=== PATIENT | female | born 1935 | race Caucasian/White ===

== ENCOUNTER → 2017-03-05 | Outpatient (CLI) | payer MEDICARE, BC | END | disposition home or self-care (01) | LOC: WOUND 10:16 | PROVIDERS: ATTEND Physician Assistant | DX: C44.729 Squamous cell carcinoma of skin of left lower limb, including hip (principal); I89.0 Lymphedema, not elsewhere classified; I10 Essential (primary) hypertension; E03.9 Hypothyroidism, unspecified; K21.9 Gastro-esophageal reflux disease without esophagitis; M19.90 Unspecified osteoarthritis, unspecified site; M06.9 Rheumatoid arthritis, unspecified; Z86.711 Personal history of pulmonary embolism; Z90.710 Acquired absence of both cervix and uterus | CPT/HCPCS: 11100; G0463; WOU0463 ==

== ENCOUNTER → 2017-03-19 | Outpatient (CLI) | payer MEDICARE, BC | END | disposition home or self-care (01) | LOC: WOUND 10:00 | PROVIDERS: ATTEND Physician Assistant | DX: I89.0 Lymphedema, not elsewhere classified (principal); L84 Corns and callosities; Z90.710 Acquired absence of both cervix and uterus; I10 Essential (primary) hypertension; K21.9 Gastro-esophageal reflux disease without esophagitis; E03.9 Hypothyroidism, unspecified; M06.9 Rheumatoid arthritis, unspecified | CPT/HCPCS: G0463; WOU0463 ==

== ENCOUNTER → 2017-03-27 | Outpatient (CLI) | payer MEDICARE, BC | END | disposition home or self-care (01) | LOC: CVU 13:45 | PROVIDERS: ATTEND Physician Assistant | DX: I70.203 Unspecified atherosclerosis of native arteries of extremities, bilateral legs (principal); I87.2 Venous insufficiency (chronic) (peripheral); S91.002D Unspecified open wound, left ankle, subsequent encounter; X58.XXXD Exposure to other specified factors, subsequent encounter | CPT/HCPCS: 93922; 93925; 93970 ==

== ENCOUNTER → 2017-04-02 | Outpatient (CLI) | payer MEDICARE, BC | END | disposition home or self-care (01) | LOC: WOUND 10:38 | PROVIDERS: ATTEND Family Medicine | DX: S81.802D Unspecified open wound, left lower leg, subsequent encounter (principal); I87.2 Venous insufficiency (chronic) (peripheral); L84 Corns and callosities; I89.0 Lymphedema, not elsewhere classified; I10 Essential (primary) hypertension; K21.9 Gastro-esophageal reflux disease without esophagitis; E03.9 Hypothyroidism, unspecified; M06.9 Rheumatoid arthritis, unspecified; Z86.711 Personal history of pulmonary embolism; Z90.710 Acquired absence of both cervix and uterus; X58.XXXD Exposure to other specified factors, subsequent encounter | CPT/HCPCS: G0463; WOU0463 ==

== ENCOUNTER 2017-04-27 12:30 | Inpatient (IN) | payer MEDICARE, BC ==
[~2017-04-27] VITALS: Ht 162.6 cm; Wt 73.1 kg
[2017-04-27] MEDS ORDERED: OMEP-110 PO (13:07)
[2017-04-27] MEDS ORDERED: AMLO5TAB2 PO (13:07)
[2017-04-27] MEDS ORDERED: FOLI-17 PO (13:07)
[2017-04-27] MEDS ORDERED: LISI40TA PO (13:07)
[2017-04-27] MEDS ORDERED: LEVO75TA PO (13:07)
[2017-04-27] MEDS ORDERED: ESCI20TA PO (13:07)
[2017-04-27] MEDS ORDERED: COLE5PAC3 PO ×2 (13:07→15:56)
[2017-04-27] MEDS ORDERED: METH2.5T PO (13:07)
[2017-04-27] MEDS ORDERED: PRED5TAB PO (13:07)
[2017-04-27] MEDS ORDERED: SODIUM CHLORIDE 0.9% 1,000 ML IV ONE (13:08)
[2017-04-27] MEDS ORDERED: PLEASE ENTER ALLERGIES MC SCH ×2 (13:30)
[2017-04-27] MEDS ORDERED: SODIUM CHLORIDE FLUSH 10ML SYR IVF ONE (13:30)
[2017-04-27 13:40] LABS: PATH.CAST-FLAG NOT PRESENT; SPERM-FLAG NOT PRESENT; SRC-FLAG NOT PRESENT; XTAL-FLAG NOT PRESENT; YLC-FLAG NOT PRESENT
[2017-04-27 13:49] LABS: HEMATOCRIT 42.1 % (34.6-47.8); HEMOGLOBIN 14.1 g/dL (11.7-16.4); WHITE BLOOD COUNT 9.5 x10^3/uL (3.4-10)
[2017-04-27 13:55] LABS: ASPARTATE AMINO TRANSFERASE 20 U/L (15-37); BLOOD UREA NITROGEN 8 mg/dL (7-18)
[2017-04-27] MEDS ORDERED: ASPIRIN 325 MG TABLET PO ONE (15:00)
[2017-04-27] MEDS ORDERED: ASPIRIN 325 MG TABLET ONE (15:04)
[2017-04-27 15:56] VITALS: BP 138/72
[2017-04-27] MEDS ORDERED: POLYETHYLENE GLYCOL 17 GM PACKET PO PRN (17:30)
[2017-04-27] MEDS ORDERED: BISACODYL 10 MG SUPP PR PRN (17:30)
[2017-04-27] MEDS: SODIUM CHLORIDE 0.9% 1,000 ML IV SCH (18:12)
[2017-04-27] MEDS: HEPARIN 5,000 UNITS/ML, 1ML SQ SCH (18:12)
[2017-04-27] MEDS ORDERED: COLESTIPOL GRANULES 5 GM PACKET PO ONE (18:30)
[2017-04-27 19:04] LABS: IS PT STATUS REG ER OR PRE ER? NO
[2017-04-27 19:19] VITALS: BP 131/68
[2017-04-27] MEDS ORDERED: MAGNESIUM SULFATE PMX 2GM/50ML 50 ML IV ONE (20:00)
[2017-04-27] MEDS: ACETAMINOPHEN 325 MG TABLET PO PRN (22:07)
[2017-04-27 23:44] VITALS: BP 166/78
[2017-04-27 23:50] LABS: IS PT STATUS REG ER OR PRE ER? NO
[2017-04-28] VITALS (7 sets, daily range): BP systolic 160–208; BP diastolic 78–97
[2017-04-28] MEDS: ACETAMINOPHEN 325 MG TABLET PO PRN (03:57)
[2017-04-28] MEDS: HEPARIN 5,000 UNITS/ML, 1ML SQ SCH ×3 (03:59→17:31)
[2017-04-28] MEDS ORDERED: hydrALAzine 20 MG/ML, 1ML IV PRN (04:30)
[2017-04-28 05:13] LABS: HEMOGLOBIN 13.1 g/dL (11.7-16.4); WHITE BLOOD COUNT 9.6 x10^3/uL (3.4-10)
[2017-04-28 05:13] LABS: ASPARTATE AMINO TRANSFERASE 17 U/L (15-37); BLOOD UREA NITROGEN 9 mg/dL (7-18)
[2017-04-28] MEDS: ASPIRIN 325 MG TABLET EC PO SCH (06:10)
[2017-04-28] MEDS: SODIUM CHLORIDE 0.9% 1,000 ML IV SCH (06:11)
[2017-04-28] MEDS: LEVOTHYROXINE 75 MCG TABLET PO SCH (06:11)
[2017-04-28] MEDS ORDERED: METHOTREXATE 2.5 MG TABLET PO SCH (09:00)
[2017-04-28] MEDS: TEMPLATE NON-FORMULARY MED. (Escitalopram Oxalate** 20 MG) PO SCH (09:00)
[2017-04-28] MEDS: FOLIC ACID 1 MG TABLET PO SCH (09:45)
[2017-04-28] MEDS: OMEPRAZOLE 20 MG CAPSULE.DR PO SCH (09:46)
[2017-04-28] MEDS: COLESTIPOL GRANULES 5 GM PACKET PO SCH (09:47)
[2017-04-28] MEDS: LISINOPRIL 20 MG TABLET PO SCH (12:44)
[2017-04-28] MEDS: AMLODIPINE 5 MG TABLET PO SCH (12:45)
[2017-04-29 00:17] VITALS: BP 161/85
[2017-04-29] MEDS: ACETAMINOPHEN 325 MG TABLET PO PRN ×2 (02:59→10:30)
[2017-04-29] MEDS: HEPARIN 5,000 UNITS/ML, 1ML SQ SCH ×2 (02:59→10:31)
[2017-04-29] MEDS ORDERED: PNEUMOCOCCAL 23 VACCINE IM-VACC ONE (05:30)
[2017-04-29] MEDS: LEVOTHYROXINE 75 MCG TABLET PO SCH (05:46)
[2017-04-29] MEDS: ASPIRIN 325 MG TABLET EC PO SCH (05:46)
[2017-04-29 06:42] VITALS: BP 119/69
[2017-04-29] MEDS ORDERED: METHOTREXATE 2.5 MG TABLET PO SCH (09:00)
[2017-04-29] MEDS: COLESTIPOL GRANULES 5 GM PACKET PO SCH (09:00)
[2017-04-29] MEDS: TEMPLATE NON-FORMULARY MED. (Escitalopram Oxalate** 20 MG) PO SCH (09:00)
[2017-04-29] MEDS: FOLIC ACID 1 MG TABLET PO SCH (10:28)
[2017-04-29] MEDS: AMLODIPINE 5 MG TABLET PO SCH (10:28)
[2017-04-29] MEDS: OMEPRAZOLE 20 MG CAPSULE.DR PO SCH (10:29)
[2017-04-29] MEDS: LISINOPRIL 20 MG TABLET PO SCH (10:30)
[2017-04-29 10:35] VITALS: BP_SYST 112; BP_SYST 125; BP_DIAS 59; BP_DIAS 73
[2017-04-29] MEDS ORDERED: ZONI100C2 PO (12:04)
[2017-04-29] MEDS ORDERED: ASPI-430 PO (12:04)
[2017-04-29 12:12] VITALS: BP 142/71
== END 2017-04-29 14:05 | disposition home or self-care (01) | DRG 101 ==
LOC: ED 14:13 → EDIP 14:28 → 4WST 15:48 → 4EST 16:24
PROVIDERS: ADMIT Internal Medicine; ATTEND Internal Medicine
DX: G40.909 Epilepsy, unspecified, not intractable, without status epilepticus (principal); G45.9 Transient cerebral ischemic attack, unspecified; D75.89 Other specified diseases of blood and blood-forming organs; F03.90 Unspecified dementia, unspecified severity, without behavioral disturbance, psychotic disturbance, mood disturbance, and anxiety; I10 Essential (primary) hypertension; E03.9 Hypothyroidism, unspecified; I34.0 Nonrheumatic mitral (valve) insufficiency; K21.9 Gastro-esophageal reflux disease without esophagitis; R91.1 Solitary pulmonary nodule; L98.9 Disorder of the skin and subcutaneous tissue, unspecified; M06.9 Rheumatoid arthritis, unspecified; Z66 Do not resuscitate; Z79.82 Long term (current) use of aspirin; Z80.49 Family history of malignant neoplasm of other genital organs; Z85.828 Personal history of other malignant neoplasm of skin; Z86.711 Personal history of pulmonary embolism; Z87.891 Personal history of nicotine dependence; M19.90 Unspecified osteoarthritis, unspecified site; Z79.899 Other long term (current) drug therapy; Z90.49 Acquired absence of other specified parts of digestive tract
CPT/HCPCS: 36415; 70450; 70551; 71010; 71250; 80053; 80061; 81001; 82306; 82607; 82746; 83735; 83970; 84100; 84443; 84484; 85025; 85610; 85730; 90732; 93005; 93306; 93880; 95819; 96360; J1644; J8610; 92523-GN; J3475; J7030; J7512

== ENCOUNTER 2018-01-16 15:56 | Emergency (ER) | payer MEDICARE, BC ==
[~2018-01-16] VITALS: Ht 167.6 cm; Wt 76.0 kg
[~2018-01-16 15:56] MED LIST: AMLO5TAB2 PO; ASPI-430 PO; COLE5PAC3 PO; ESCI20TA PO; FOLI-17 PO; LEVO75TA PO; LISI40TA PO; METH2.5T PO; OMEP-110 PO; PRED5TAB PO; ZONI100C2 PO
[2018-01-16] MEDS ORDERED: ZONI100C2 PO (16:16)
[2018-01-16 18:28] LABS: CULTURE INDICATED? YES; MICROSCOPIC AUTO
[2018-01-16] MEDS ORDERED: SODIUM CHLORIDE FLUSH 10ML SYR IVF ONE (18:30)
[2018-01-16 18:40] LABS: MEAN CORPUSCULAR HEMOGLOBIN 35.7 pg (27.0-34.8); MEAN CORPUSCULAR HGB CONC 34.1 g/dL (32.4-35.8); MEAN CORPUSCULAR VOLUME 104.7 fL (80-100); MEAN PLATELET VOLUME 7.8 fL (7.4-10.4); PLATELET COUNT 291 x10^3/uL (130-400); RED BLOOD COUNT 3.93 x10^6/uL (3.82-5.3); RED CELL DISTRIBUTION WIDTH 13.7 % (9.6-15.2)
[2018-01-16 18:47] LABS: ANION GAP 7 mmol/L (5-15); CALCIUM 8.1 mg/dL (8.5-10.1); CHLORIDE 108 mmol/L (98-107); CREATININE 0.81 mg/dL (0.55-1.02)
[2018-01-16 18:50] LABS: TROPONIN I < 0.015 ng/mL (0.000-0.045)
[2018-01-16 19:10] LABS: BASOPHILS # (AUTO) 0.02 x10^3/uL (0-0.1); BASOPHILS % (AUTO) 0 % (0-1); EOSINOPHILS # (AUTO) 0.23 x10^3/uL (0-0.4); EOSINOPHILS % (AUTO) 3 % (1-7); LYMPHOCYTES % (AUTO) 56 % (22-44); MD SCAN; MONOCYTES # (AUTO) 0.67 x10^3/uL (0.2-0.8); MONOCYTES % (AUTO) 8 % (2-9); NEUTROPHILS % (AUTO) 33 % (42-75)
[2018-01-16 19:18] VITALS: BP 132/62
[2018-01-16 19:30] LABS: INTERNATIONAL NORMALIZED RATIO 0.99 (0.93-1.1); PROTHROMBIN TIME 10.2 Seconds (9.6-11.5)
[2018-01-16 19:42] LABS: ALANINE AMINOTRANSFERASE 43 U/L (12-78); ALKALINE PHOSPHATASE 74 U/L (45-117); BILIRUBIN,TOTAL 0.2 mg/dL (0.2-1.0); TOTAL PROTEIN 6.2 g/dL (6.4-8.2)
[2018-01-16 19:43] LABS: BILIRUBIN, DIRECT < 0.1 mg/dL (0.1-0.2); BILIRUBIN,INDIRECT 0.1 mg/dL (0.0-2.0)
== END 2018-01-16 19:28 | disposition home or self-care (01) ==
LOC: ED 19:22
DX: F44.89 Other dissociative and conversion disorders (principal); F10.120 Alcohol abuse with intoxication, uncomplicated; I10 Essential (primary) hypertension; E78.00 Pure hypercholesterolemia, unspecified; E03.9 Hypothyroidism, unspecified; R51 Headache; Z86.73 Personal history of transient ischemic attack (TIA), and cerebral infarction without residual deficits; Z90.49 Acquired absence of other specified parts of digestive tract
CPT/HCPCS: 36415; 70450; 71045; 80048; 80076; 80307; 81001; 82040; 84484; 85025; 85610; 87086; 93005; 99285

== ENCOUNTER 2018-10-24 15:33 | Inpatient (IN) | payer MEDICARE, BC ==
[~2018-10-24] VITALS: Ht 162.6 cm; Wt 79.9 kg
[~2018-10-24 15:33] MED LIST changes: +AMLO-150 PO; -AMLO5TAB2 PO; +ATOR-2 PO; +FLUT9.9S INH
--- NOTE | 2018-10-24 16:15 | NUR ---
PT BIB [facility] AFTER MULTIPLE SYNCOPAL EPISODES AT HOME, 5 STAR RESIDENCE, FROM UNKNOWN CAUSE PT IS NOT ABLE TO REMEBER HOW SHE FELL. SHE DOES REMEMBER ATTEMPTNG TO GO TO [facility] FOR BM. PT HAS STOOL ON HER ON ARRIVAL WITH POSSIBLE LAC BEHIND HER LEFT EAR DRIED BLOOD IS MATTED TO HER HAIR. PT REPORTS SHE FELL AT ABOUT 2-3 AM TODAY AND WAS ON THE FLOOR FOR 12 HOURS. PT C/O PAIN ON HER BOTTOM WHERE SHE WAS LAYING. REPORT TO PIOTR ESTRADA.
--- NOTE | 2018-10-24 16:21 | NUR ---
REPORT FROM DEREK CASTRO RN. ASSUMED CARE OF PATIENT. Addendum: 10/24/18 at 1740 by JAY PATIENT REPORTS FALLING THIS AM AT 0200.
--- NOTE | 2018-10-24 16:21 | NUR ---
XRAY AT BEDSIDE.
[2018-10-24] MEDS ORDERED: AMLO-150 PO (16:23)
[2018-10-24] MEDS ORDERED: MAGN200T PO (16:23)
[2018-10-24 16:28] LABS: BASOPHILS # (AUTO) 0.04 x10^3/uL (0-0.1); BASOPHILS % (AUTO) 0 % (0-1); EOSINOPHILS # (AUTO) 0.06 x10^3/uL (0-0.4); EOSINOPHILS % (AUTO) 0 % (1-7); LYMPHOCYTES # (AUTO) 2.19 x10^3/uL (1-3.4); LYMPHOCYTES % (AUTO) 15 % (22-44); MD NO; MEAN CORPUSCULAR HEMOGLOBIN 33.8 pg (27.0-34.8); MEAN CORPUSCULAR HGB CONC 33.7 g/dL (32.4-35.8); MEAN CORPUSCULAR VOLUME 100.1 fL (80-100); MEAN PLATELET VOLUME 8.6 fL (7.4-10.4); MONOCYTES # (AUTO) 0.86 x10^3/uL (0.2-0.8); MONOCYTES % (AUTO) 6 % (2-9); NEUTROPHILS # (AUTO) 11.07 x10^3/uL (1.8-6.8); NEUTROPHILS % (AUTO) 78 % (42-75); PLATELET COUNT 310 x10^3/uL (130-400); RED BLOOD COUNT 4.43 x10^6/uL (3.82-5.3); RED CELL DISTRIBUTION WIDTH 13.1 % (9.6-15.2)
--- NOTE | 2018-10-24 16:32 | NUR ---
PATIENT IN CT.
[2018-10-24 16:40] LABS: INTERNATIONAL NORMALIZED RATIO 0.96 (0.93-1.1); PROTHROMBIN TIME 10.1 Seconds (9.6-11.5)
[2018-10-24 16:41] LABS: ALBUMIN 3.5 g/dL (3.4-5.0); ANION GAP 7 mmol/L (5-15); CALCIUM 9.6 mg/dL (8.5-10.1); CHLORIDE 106 mmol/L (98-107); CREATININE 0.91 mg/dL (0.55-1.02)
[2018-10-24 16:45] LABS: CREATINE KINASE, TOTAL 237 U/L (26-192); TROPONIN I < 0.015 ng/mL (0.000-0.045)
--- NOTE | 2018-10-24 17:14 | NUR ---
CHART UP FOR RECHECK, VS UPDATED IN CHART. PATIENT A+OX4, NAD NOTED. SMILING, LAYING IN GURNEY. AWAITING FURTHER ORDERS.
--- NOTE | 2018-10-24 17:28 | NUR ---
PATIENT TO BE ADMITTED TO ICU. ERP AWARE OF CT AND BP OF 189/61. IV STARTED X 2, LABETALOL REQ FROM PHARMACY AND ADMINISTERED PER ERP ORDER. PATIENT REMAINS ASYMPTOMATIC AT THIS TIME. A +OX4. PATIENT UPDATED ON POC. EMT AT BEDSIDE TO CLEAN LEFT HEAD LAC. PATIENT REPORTS NOT TAKING BP MEDICATIONS THIS MORNING BUT SHE DID TAKE THEM LAST NIGHT. AWAITING BED ASSIGNMENT.
[2018-10-24] MEDS ORDERED: LABETALOL 5MG/ML, 20ML IVPush ONE (17:30)
[2018-10-24] MEDS ORDERED: SODIUM CHLORIDE FLUSH 10ML SYR IVF ONE (17:30)
[2018-10-24] MEDS ORDERED: LABETALOL 5 MG/ML SYRINGE IVPush ONE ×2 (17:30→18:00)
--- NOTE | 2018-10-24 17:39 | NUR ---
[facility] AT BEDSIDE.
--- NOTE | 2018-10-24 17:41 | NUR ---
VS UPDATED IN CHART, BP NOW 170/71.
[2018-10-24] MEDS ORDERED: LIDOCAINE-MPF 1%, 5ML ONE (17:45)
--- NOTE | 2018-10-24 17:57 | NUR ---
NEW ORDERS FOR LABETALOL, ADMINISTERED PER ERP ORDER, NEW VS UPDATED IN CHART, BP NOW 150/66. PATIENT A+OX4, NAD NOTED. AWAITING BED ASSIGNMENT. NO ADDITIONAL NEEDS AT THIS TIME.
[2018-10-24] MEDS ORDERED: SODIUM CHLORIDE 0.9% 1,000 ML IV SCH (17:58)
[2018-10-24] MEDS ORDERED: ONDANSETRON 2MG/ML, 2ML IVPush PRN (18:00)
[2018-10-24] MEDS ORDERED: POLYETHYLENE GLYCOL 17 GM PACKET PO PRN (18:00)
[2018-10-24] MEDS ORDERED: BISACODYL 10 MG SUPP PR PRN (18:00)
[2018-10-24] MEDS ORDERED: hydrALAzine 20 MG/ML, 1ML IVPush PRN (18:00)
--- NOTE | 2018-10-24 19:10 | NUR ---
REPORT TO NATALIE BARTLETT.
[2018-10-24 19:21] LABS: FREE T4 (FREE THYROXINE) 1.12 ng/dL (0.76-1.46); THYROID STIMULATING HORMONE 1.04 mIU/L (0.358-3.740)
--- NOTE | 2018-10-24 19:27 | NUR ---
PATIENT TRANSFERRED TO ICU.
[2018-10-24] MEDS: ATORVASTATIN 80 MG TABLET PO SCH (20:39)
[2018-10-24] MEDS: LISINOPRIL 20 MG TABLET PO SCH (20:39)
[2018-10-24] MEDS: AMLODIPINE 5 MG TABLET PO SCH (20:39)
[2018-10-24] MEDS: ZONISAMIDE 50 MG CAPSULE PO SCH (20:40)
[2018-10-24 21:15] LABS: MICROSCOPIC AUTO
[2018-10-24 21:27] LABS: CULTURE INDICATED? YES
[2018-10-25 00:19] VITALS: BP 146/50
[2018-10-25 04:00] VITALS: BP 120/50
[2018-10-25 04:39] LABS: BASOPHILS # (AUTO) 0.04 x10^3/uL (0-0.1); BASOPHILS % (AUTO) 0 % (0-1); EOSINOPHILS # (AUTO) 0.67 x10^3/uL (0-0.4); EOSINOPHILS % (AUTO) 6 % (1-7); LYMPHOCYTES % (AUTO) 16 % (22-44); MD NO; MEAN CORPUSCULAR HEMOGLOBIN 33.5 pg (27.0-34.8); MEAN CORPUSCULAR HGB CONC 33.5 g/dL (32.4-35.8); MEAN CORPUSCULAR VOLUME 100.2 fL (80-100); MEAN PLATELET VOLUME 8.6 fL (7.4-10.4); MONOCYTES # (AUTO) 1.03 x10^3/uL (0.2-0.8); MONOCYTES % (AUTO) 8 % (2-9); NEUTROPHILS # (AUTO) 8.46 x10^3/uL (1.8-6.8); NEUTROPHILS % (AUTO) 69 % (42-75); PLATELET COUNT 263 x10^3/uL (130-400); RED BLOOD COUNT 3.78 x10^6/uL (3.82-5.3); RED CELL DISTRIBUTION WIDTH 13.3 % (9.6-15.2)
[2018-10-25 04:50] LABS: ALBUMIN 2.7 g/dL (3.4-5.0); ANION GAP 3 mmol/L (5-15); CALCIUM 8.6 mg/dL (8.5-10.1); CHLORIDE 110 mmol/L (98-107)
[2018-10-25 04:54] LABS: ALANINE AMINOTRANSFERASE 78 U/L (12-78); ALKALINE PHOSPHATASE 303 U/L (45-117); BILIRUBIN,TOTAL 1.5 mg/dL (0.2-1.0); CREATININE 0.63 mg/dL (0.55-1.02); TOTAL PROTEIN 5.5 g/dL (6.4-8.2)
[2018-10-25] MEDS: LEVOTHYROXINE 75 MCG TABLET PO SCH (05:57)
[2018-10-25] MEDS: ESCITALOPRAM 10MG TABLET PO SCH (08:23)
[2018-10-25] MEDS: COLESTIPOL GRANULES 5 GM PACKET PO SCH (08:23)
[2018-10-25] MEDS: AMLODIPINE 5 MG TABLET PO SCH ×2 (08:24→20:31)
[2018-10-25] MEDS: LISINOPRIL 20 MG TABLET PO SCH ×2 (08:24→20:31)
[2018-10-25] MEDS: FOLIC ACID 1 MG TABLET PO SCH (08:24)
[2018-10-25] MEDS: OMEPRAZOLE 20 MG CAPSULE.DR PO SCH (08:24)
[2018-10-25] MEDS: MAGNESIUM OXIDE 400 MG TABLET PO SCH (08:25)
[2018-10-25] MEDS: SENNA/DOCUSATE TABLET PO SCH (08:25)
[2018-10-25 12:00] VITALS: BP 134/73
[2018-10-25] MEDS: CEFTRIAXONE PMX 1GM/50ML 50 ML IV SCH (15:40)
[2018-10-25 18:29] VITALS: BP 120/71
[2018-10-25 20:30] VITALS: BP 108/60
[2018-10-25] MEDS: ATORVASTATIN 80 MG TABLET PO SCH (20:31)
[2018-10-25] MEDS: ZONISAMIDE 50 MG CAPSULE PO SCH (20:31)
[2018-10-26 01:00] VITALS: BP 110/63
[2018-10-26] MEDS: LEVOTHYROXINE 75 MCG TABLET PO SCH (05:48)
[2018-10-26 07:11] VITALS: BP 126/86
[2018-10-26] MEDS: ACETAMINOPHEN 325 MG TABLET PO PRN ×2 (07:27→22:44)
[2018-10-26] MEDS: ESCITALOPRAM 10MG TABLET PO SCH (08:37)
[2018-10-26] MEDS: LISINOPRIL 20 MG TABLET PO SCH ×2 (08:37→20:13)
[2018-10-26] MEDS: FOLIC ACID 1 MG TABLET PO SCH (08:37)
[2018-10-26] MEDS: MAGNESIUM OXIDE 400 MG TABLET PO SCH (08:37)
[2018-10-26] MEDS: AMLODIPINE 5 MG TABLET PO SCH ×2 (08:37→20:13)
[2018-10-26] MEDS: OMEPRAZOLE 20 MG CAPSULE.DR PO SCH (08:37)
[2018-10-26] MEDS: COLESTIPOL GRANULES 5 GM PACKET PO SCH (08:38)
[2018-10-26] MEDS: SENNA/DOCUSATE TABLET PO SCH (08:38)
[2018-10-26] MEDS: CEFTRIAXONE PMX 1GM/50ML 50 ML IV SCH (11:54)
[2018-10-26 13:00] VITALS: BP 111/66
[2018-10-26 20:11] VITALS: BP 110/64
[2018-10-26] MEDS: ATORVASTATIN 80 MG TABLET PO SCH (20:13)
[2018-10-26] MEDS: ZONISAMIDE 50 MG CAPSULE PO SCH (20:13)
[2018-10-27 01:10] VITALS: BP 109/64
[2018-10-27] MEDS: LEVOTHYROXINE 75 MCG TABLET PO SCH (06:10)
[2018-10-27 08:11] VITALS: BP 110/65
[2018-10-27] MEDS: SENNA/DOCUSATE TABLET PO SCH (09:00)
[2018-10-27] MEDS ORDERED: METHOTREXATE 2.5 MG TABLET PO SCH (09:00)
[2018-10-27] MEDS: MAGNESIUM OXIDE 400 MG TABLET PO SCH (09:00)
[2018-10-27] MEDS: COLESTIPOL GRANULES 5 GM PACKET PO SCH (09:00)
[2018-10-27] MEDS: FOLIC ACID 1 MG TABLET PO SCH (09:14)
[2018-10-27] MEDS: ESCITALOPRAM 10MG TABLET PO SCH (09:14)
[2018-10-27] MEDS: AMLODIPINE 5 MG TABLET PO SCH (09:15)
[2018-10-27] MEDS: LISINOPRIL 20 MG TABLET PO SCH (09:15)
[2018-10-27] MEDS: OMEPRAZOLE 20 MG CAPSULE.DR PO SCH (09:15)
[2018-10-27] MEDS: CEFTRIAXONE PMX 1GM/50ML 50 ML IV SCH (11:16)
== END 2018-10-27 13:15 | disposition home or self-care (01) | DRG 73 ==
LOC: ED 17:36 → EDIP 17:58 → CCU 19:22 → 5SO 10-25 12:05
PROVIDERS: ADMIT Internal Medicine; ATTEND Internal Medicine
PROC: 0HQ0XZZ Repair Scalp Skin, External Approach (ICD-10-PCS; principal; 2018-10-24)
DX: G90.8 Other disorders of autonomic nervous system (principal); S06.5X9A Traumatic subdural hemorrhage with loss of consciousness of unspecified duration, initial encounter; E03.9 Hypothyroidism, unspecified; D72.829 Elevated white blood cell count, unspecified; D75.89 Other specified diseases of blood and blood-forming organs; E78.00 Pure hypercholesterolemia, unspecified; F03.90 Unspecified dementia, unspecified severity, without behavioral disturbance, psychotic disturbance, mood disturbance, and anxiety; G40.909 Epilepsy, unspecified, not intractable, without status epilepticus; I10 Essential (primary) hypertension; I89.0 Lymphedema, not elsewhere classified; K21.9 Gastro-esophageal reflux disease without esophagitis; M06.9 Rheumatoid arthritis, unspecified; Z66 Do not resuscitate; S01.01XA Laceration without foreign body of scalp, initial encounter; W18.30XA Fall on same level, unspecified, initial encounter; Y93.89 Activity, other specified; Y92.89 Other specified places as the place of occurrence of the external cause; Y99.8 Other external cause status; Z96.651 Presence of right artificial knee joint; Z85.828 Personal history of other malignant neoplasm of skin; Z86.73 Personal history of transient ischemic attack (TIA), and cerebral infarction without residual deficits; Z90.710 Acquired absence of both cervix and uterus; Z90.49 Acquired absence of other specified parts of digestive tract
CPT/HCPCS: 36415; 70450; 71045; 80048; 80053; 81001; 82040; 82550; 84439; 84443; 84484; 85025; 85610; 85730; 87081; 87086; 87186; 93005; 96374; 99285; G0378; J0696; J7030; J7512